=== PATIENT | female | born 1990 | race Caucasian/White ===

== ENCOUNTER 2022-01-04 07:42 | Emergency (ER) | payer BC ==
[~2022-01-04] VITALS: Ht 165.1 cm; Wt 96.4 kg
[2022-01-04] MEDS ORDERED: XIID5DRO (07:49)
[2022-01-04] MEDS ORDERED: [UNRECOGNIZED DRUG - CODE] (07:49)
[2022-01-04] MEDS ORDERED: FLUORESCEIN OPHTH 1 MG STRIP OS ONE (10:55)
[2022-01-04] MEDS ORDERED: PROPARACAINE 0.5% OPHTH SOL 15ML OS ONE ×2 (10:55→12:20)
[2022-01-04 11:34] LABS: BASO % 0.2 % (0.0-1.0); EOS % 0.2 % (0.0-3.0); HEMATOCRIT 43.2 % (36.0-47.0); HEMOGLOBIN 14.6 g/dl (12.0-15.5); LYMPH # 3.4 10^3/uL (1.5-5.0); LYMPH % 20.2 % (24.0-44.0); MEAN CORPUSCULAR HEMOGLOBIN 28.1 pg (27.0-33.0); MEAN CORPUSCULAR HGB CONC 33.8 g/dl (32.0-36.5); MEAN CORPUSCULAR VOLUME 83.2 fl (80.0-96.0); MONO # 0.6 10^3/uL (0.0-0.8); MONO % 3.7 % (2.0-8.0); NEUTROPHILS # 12.5 10^3/uL (1.5-8.5); NEUTROPHILS % 75.2 % (36.0-66.0); PLATELET COUNT, AUTOMATED 397 10^3/uL (150-450); RED BLOOD COUNT 5.19 10^6/uL (4.00-5.40); WHITE BLOOD COUNT 16.7 10^3/uL (4.0-10.0)
[2022-01-04] MEDS ORDERED: ISOVUE-370 76% 100ML VIAL As Ordered ONE (11:40)
[2022-01-04 12:07] LABS: ERYTHROCYTE SEDIMENTATION RATE 20 mm/hr (0-20)
[2022-01-04] MEDS ORDERED: KETOROLAC 30 MG/ML 1ML VIAL IV ONE (13:35)
[2022-01-04] MEDS ORDERED: AMOX875T2 PO (14:17)
[2022-01-04] MEDS ORDERED: AUGMENTIN 875 MG TAB PO ONE (14:20)
[2022-01-04 14:30] VITALS: BP 144/84
[2022-01-04] MEDS ORDERED: KETO10TAB PO (14:32)
== END 2022-01-04 14:32 | disposition home or self-care (01) ==
LOC: M ED 07:42
DX: L03.213 Periorbital cellulitis (principal); Z79.899 Other long term (current) drug therapy
CPT/HCPCS: 70481; 80047; 84702; 85025; 85652; 86140; 96374; 99284; J1885; Q9967